=== PATIENT | male | born 1960 | race Caucasian/White ===

== ENCOUNTER 2016-12-28 08:27 | Emergency (ER) | payer OTHER ==
[~2016-12-28] VITALS: Ht 162.6 cm; Wt 109.0 kg
[~2016-12-28 08:27] MED LIST: AMOXACILLIN PO; ANR PR; CYCL-319 PO; HYDR-3498 PO; IBUP-727 PO; NAPR-260 PO; TRAM50TA2 PO
[2016-12-28 08:31] VITALS: Ht 162.6 cm; Wt 109.0 kg
[2016-12-28] MEDS ORDERED: KETOROLAC 30 MG INJ IM STA (09:14)
--- NOTE | 2016-12-28 10:03 | ERD ---
ER Documentation Chief Complaint Chief Complaint lower back pain & right forearm pain x1wk, denies injury HPI This is a 56-year-old male who presents the emergency department today complaining of back pain and right elbow pain for the past week. Denies any significant trauma. 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 States he is taking ibuprofen for pain. Denies any fevers or chills. Denies any dysuria, hematuria, loss of bowel or bladder control. ROS All systems reviewed and are negative except as per history of present illness. Medications Home Meds Active Scripts Tramadol HCl (Tramadol HCl) 50 Mg Tablet, 50 MG PO Q4 Y for PAIN, #20 TAB Prov:JESUS CANTU PA-C 12/28/16 Naproxen* (Naprosyn*) 500 Mg Tablet, 500 MG PO BID Y for PAIN AND/OR INFLAMMATION, #30 TAB Prov:JESUS CANTU PA-C 12/28/16 Naproxen* (Naprosyn*) 500 Mg Tablet, 500 MG PO BID Y for PAIN AND/OR INFLAMMATION, #30 TAB Prov:DIANA PAULSON PA-C 09/09/15 Cyclobenzaprine Hcl* (Cyclobenzaprine Hcl*) 10 Mg Tablet, 10 MG PO TID, #15 TAB Prov:DIANA PAULSON PA-C 09/09/15 Tramadol HCl (Tramadol HCl) 50 Mg Tablet, 50 MG PO Q4 Y for PAIN, #20 TAB Prov:DIANA PAULSON PA-C 09/09/15 Hard Fat/Phenylephrine* (Anusol*) 1 Supp Supp, 1 SUPP LA QHS for 7 Days, SUPP Prov:KIRA PALOMINO 12/29/14 Cyclobenzaprine Hcl* (Cyclobenzaprine Hcl*) 10 Mg Tablet, 10 MG PO TID, #15 TAB Prov:DIANA PAULSON PA-C 12/05/14 Naproxen* (Naprosyn*) 500 Mg Tablet, 500 MG PO BID Y for PAIN AND/OR INFLAMMATION, #30 TAB Prov:DIANA PAULSON PA-C 12/05/14 Hydrocodone Bit-Acetaminophen* (Descanso*) 5-325 Mg Tab, 1 TAB PO Q6 Y for PAIN, # 15 TAB Prov:DIANA PAULSON PA-C 12/05/14 Reported Medications Ibuprofen (Motrin) 600 Mg Tablet, 600 MG PO Q6HR 09/12/10 [Amoxacillin] 500 MG TAB No Conflict Check, 500 MG PO TID 09/12/10 Allergies Allergies: Coded Allergies: No Known Allergy (Verified , 09/09/15) PMhx/Soc History of Surgery: Yes (APPENDECTOMY) Anesthesia Reaction: No Hx Neurological Disorder: No Hx Respiratory Disorders: No Hx Cardiac Disorders: No Hx Psychiatric Problems: No Hx Miscellaneous Medical Probl: Yes (HTN) Hx Alcohol Use: No Hx Substance Use: No Hx Tobacco Use: No Physical Exam Vitals Vital Signs Date Time Temp Pulse Resp B/P Pulse Ox O2 Delivery O2 Flow Rate FiO2 12/28/16 08:31 98.0 95 151/72 98 Physical Exam Const: NAD Head: Atraumatic Eyes: Normal Conjunctiva ENT: Normal External Ears, Nose and Mouth. Neck: Full range of motion..~ No meningismus. Resp: Clear to auscultation bilaterally Cardio: Regular rate and rhythm, no murmurs Abd: Soft, non tender, non distended. Normal bowel sounds Skin: No petechiae or rashes Back: Lumbar spine midline tenderness no paraspinal tenderness. Negative straight leg raise. Pulses 2+. Distal neurovascularly intact MSK: Elbow with no obvious deformity. No effusion. No ecchymosis. Full active range of motion at elbow joint. Tenderness palpation lateral epicondyle and pain with wrist extension. Pulses 2+. Distal neurovascularly intact. Neur: Awake and alert Psych: Normal Mood and Affect Results 24 hrs Current Medications Medications (Trade) Dose Ordered Sig/Tanisha Route PRN Reason Start Time Stop Time Status Last Admin Dose Admin Ketorolac Tromethamine (Toradol) 30 mg ONCE STAT IM 12/28/16 09:14 12/28/16 09:16 DC 12/28/16 09:23 DIAGNOSTIC IMAGING REPORT Patient: CHADD OVALLE : 1960 Age: 56 Sex: M MR #: [id number] DOS: 12/28/16 0000 Ordering MD: JESUS CANTU PA-C Location: [facility] Room/Bed: PROCEDURE: XR Lumbar Spine. CLINICAL INDICATION: Low back pain. TECHNIQUE: AP, lateral and cone-down lateral view of the lumbar spine were obtained. COMPARISON: No prior studies are available for comparison. FINDINGS: There are 5 lumbar vertebra. S1 is partially lumbarized consistent with a transitional vertebra. The sacrum and SI joints are otherwise normal. There are degenerative osteophytes in the lower thoracic and lumbar spine. There is mild disc space narrowing at the lumbosacral junction. The neural canal and nerve root foramina are unremarkable. IMPRESSION: 1. 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 2. Transitional vertebra. S1 is partially lumbarized. RPTAT:AAJJ John Madrigal Physician Date Time Electronically viewed and signed by John Madrigal Physician on 12/28/2016 10:00 JM/ CC: JESUS CANTU PA-C Procedures/MDM Is a 56-year-old male who presents the emergency department today complaining of back pain and right elbow pain for the past week. On physical exam patient had midline tenderness in the lumbar spine and therefore did obtain images. His elbow exam is most consistent with extensor tendinitis. I have explained this to the patient. Per the radiology report images of the lumbar spine show there are degenerative osteophytes in the lower thoracic and lumbar spine. There is mild disc space narrowing at the lumbosacral junction. The neural canal and nerve root foramina are unremarkable. Symptoms at this time is consistent with degenerative disc disease and elbow tendinitis. Afebrile and otherwise well-appearing. He has no dysuria, hematuria or loss of bowel or bladder control. Low suspicion for urinary tract infection, pyelonephritis or nephrolithiasis, cauda equina or abscess Patient was given Toradol here in the emergency department. He will be given a prescription for short course of tramadol and Naprosyn for home. He was instructed to follow-up with his primary care doctor for referral to senior bioinformatics specialist. Patient understood. At this time the patient is stable for discharge and outpatient management. Patient should follow up with their PCP in the next 1-2 days. They may return to the emergency department sooner for any persistent or worsening of symptoms. Patient understood and agreed with the plan. Departure Diagnosis: Primary Impression: Back pain Back pain location: low back pain Chronicity: unspecified Back pain laterality: midline Sciatica presence: without sciatica Qualified Code: M54.5 - Midline low back pain without sciatica, unspecified chronicity Additional Impression: Elbow pain Laterality: right Qualified Code: M25.521 - Right elbow pain Condition: JESUS Ramirez PA-C Dec 28, 2016 10:03
[2016-12-28] MEDS ORDERED: NAPR-260 PO (10:14)
[2016-12-28] MEDS ORDERED: TRAM50TA2 PO (10:14)
[2016-12-28 10:31] VITALS: BP 134/75; PULSE 66; RESP 18; TEMP 98
== END 2016-12-28 10:32 | disposition home or self-care (01) ==
LOC: FTE 08:27
DX: M54.5 Low back pain (principal); M25.521 Pain in right elbow; I10 Essential (primary) hypertension
CPT/HCPCS: 72100; 96372; J1885; Z7502

== ENCOUNTER 2017-07-10 20:01 | Emergency (ER) | END 2017-07-10 23:00 | disposition home or self-care (01) ==

== ENCOUNTER 2018-06-03 17:56 | Emergency (ER) | payer OTHER ==
[~2018-06-03] VITALS: Ht 167.6 cm; Wt 109.0 kg
[~2018-06-03 17:56] MED LIST changes: -AMOXACILLIN PO; -ANR PR; +CEPH-443 PO; -CYCL-319 PO; -HYDR-3498 PO; +HYDR-4011 PO; +IBUP-1542 PO; -IBUP-727 PO; +LOSA25TA12 PO; -NAPR-260 PO; +NEO/5DRO22 LEFT EYE; +SULF1TAB31 PO; -TRAM50TA2 PO
[2018-06-03 18:12] VITALS: Ht 167.6 cm; Wt 109.0 kg
[2018-06-03] MEDS ORDERED: HYDR-4011 PO (23:40)
[2018-06-03] MEDS ORDERED: NAPR-985 PO (23:40)
[2018-06-03] MEDS ORDERED: ACYC800T5 PO (23:40)
[2018-06-04] MEDS ORDERED: HYDROCODONE/APAP (5/325) TAB PO ONE
--- NOTE | 2018-06-04 00:19 | ERD ---
ER Documentation Chief Complaint Chief Complaint Itchy rash on L torso and back X 2 days HPI This is a 57-year-old male with a history of hypertension presents ED with rash on left back that started 2 days ago. Patient states that he had a burning sensation prior to rash developing. Patient states the rash is only on his left low back and wraps around to torso. Admits to pain. Denies fever, chills, abdominal pain, chest pain, shortness breath, trouble breathing, and all other symptoms ROS All systems reviewed and are negative except as per history of present illness. Medications Home Meds Active Scripts Acyclovir* (Zovirax*) 800 Mg Tablet, 800 MG PO 5 TIMES DAILY for 7 Days, TAB Prov:MARGARETTE MOTLEY PA-C 06/03/18 Naproxen* (Naprosyn*) 500 Mg Tablet, 500 MG PO BID PRN for PAIN AND/OR INFLAMMATION, #30 TAB Prov:MARGARETTE MOTLEY PA-C 06/03/18 Hydrocodone/Acetaminophen (Solen 5-325 Tablet) 1 Each Tablet, 1 TAB PO Q6H PRN for PAIN, #7 TAB Prov:MARGARETTE MOTLEY PA-C 06/03/18 Hydrocodone/Acetaminophen ([place]olen 5-325 Tablet) 1 Each Tablet, 1 TAB PO Q6H PRN for PAIN, #12 TAB Prov:MARCELO WALKER MD 11/09/17 Neomycin/Polymyxin/Dexameth* (Maxitrol*) 5 Ml Drops, 1 DROP LEFT EYE QID for 5 Days, #1 EA Prov:MARCELO WALKER MD 11/09/17 Sulfamethoxazole/Trimethoprim* (Bactrim Ds* Tablet) 1 Each Tablet, 1 TAB PO BID, #14 TAB Prov:DON LUIS MD 07/10/17 Cephalexin* (Keflex*) 500 Mg Capsule, 500 MG PO QID for 7 Days, CAP Prov:DON LUIS MD 07/10/17 Ibuprofen* (Ibuprofen*) 600 Mg Tablet, 600 MG PO Q8 PRN for PAIN AND OR ELEVATED TEMP, #60 TAB Prov:DON LUIS MD 07/10/17 Reported Medications Losartan Potassium* (Losartan Potassium*) 25 Mg Tablet, 25 MG PO DAILY, TAB 07/10/17 Allergies Allergies: Coded Allergies: No Known Allergy (Verified , 09/09/15) PMhx/Soc History of Surgery: Yes (APPENDECTOMY) Anesthesia Reaction: No Hx Neurological Disorder: No Hx Respiratory Disorders: No Hx Cardiac Disorders: No Hx Psychiatric Problems: No Hx Miscellaneous Medical Probl: No (HTN) Hx Alcohol Use: No Hx Substance Use: No Hx Tobacco Use: No Smoking Status: Never smoker FmHx Family History: No diabetes Physical Exam Vitals Vital Signs Date Temp Pulse Resp B/P (MAP) Pulse Ox O2 O2 Flow FiO2 Time Delivery Rate 06/03/18 98.3 84 18 155/85 96 18:12 (108) Physical Exam Physical Exam Vitals signs: Reviewed by me. General: Well developed, well nourished, in no acute distress. Patient is awake and alert. Head: Normocephalic, atraumatic. Eyes: Normal conjunctiva, Pupils PERRLA, EOM intact grossly ENT: Pharynx is clear, Moist mucous membranes, external ears, nose and mouth normal Neck: Supple, no masses, lymphadenopathy or JVD Respiratory: Clear to auscultation bilaterally with no wheezing, rhonchi, rales, no distress Cardiovascular: RRR, no murmurs, rubs, or gallops Abdominal: Soft, non-tender, non-distended, no peritoneal signs : Deferred MSK: No edema, no unilateral swelling, 5/5 strength Back: No midline tenderness. No flank tenderness Neurologic: Alert and oriented, moving all extremities, normal speech, no focal weakness, no cerebellar signs. Normal mentation Skin: Papular vesicular rash along patient's left low back following dermatome and and wrapping around torso Psych: Normal mood Results 24 hrs Current Medications Medications Dose Sig/Tanisha Start Time Status Last (Trade) Ordered Route PRN Stop Time Admin Dose Reason Admin 1 tab ONCE ONCE 06/04/18 DC 06/03/18 Acetaminophen PO 00:00 06/04/18 23:51 / 00:01 Hydrocodone Bitart (Solen (5/325)) Procedures/MDM ER COURSE: The patient was stable throughout ED course. I kept the patient and/or family informed of laboratory and diagnostic imaging results throughout the emergency room course. The patient was promptly evaluated and a treatment plan was devised based on H&P and other data. This plan was discussed with the patient who agreed and had no further questions or concerns prior to discharge. MEDICAL DECISION MAKIN-year-old male presents ED with shingles rash times 2 days. Low suspicion for anaphylaxis, scabies, STS, TEN, Lyme's disease, syphilis, [place] spotted fever, shingles, disseminated gonorrhea chlamydia, DIC, TTP, ITP, sepsis, necrotizing fasciitis, gangrene, or other emergent condition. Patient's vitals are stable and can be managed with outpatient close follow-up. Advised patient to follow-up with her primary care in the next 48 hours. Advised patient return to ED with any worsening symptoms. Advised patient to go get shingles vaccine from primary care physician DISPOSITION PLAN: We discussed follow up with the patient's primary care doctor within 24 to 48 hours. Patient counseled regarding my diagnostic impression and care plan. Prior to discharge all questions answered. Pt agrees with treatment plan and understands strict return precautions. Precautionary instructions provided including instructions to return to the ER if not improving or for any worsening or changing symptoms or concerns. ExitCare instructions provided. Prior to discharge, patients vital signs have been reviewed SPECIALIST FOLLOW UP RECOMMENDED: None Patient has been advised to follow up with primary care in 1-2 days. Disclaimer: Inadvertent spelling and grammatical errors are likely due to EHR/dictation software use and do not reflect on the overall quality of patient care. Also, please note that the electronic time recorded on this note does not necessarily reflect the actual time of the patient encounter. Departure Diagnosis: Primary Impression: Shingles Herpes zoster complications: without complications Qualified Codes: B02.9 - Zoster without complications Condition: Stable Patient Instructions: Shingles (Herpes Zoster) Referrals: [facility] () Usted se nagel hecho un examen mdico de control que le indica que no est en mariaelena condicin que requiera tratamiento urgente en el Departamento de Emergencia. Un estudio ms profundo y el tratamiento de lacy condicin pueden esperar sin ningn riesgo hasta que usted sea atendida/o en el consultorio de lacy mdico o mariaelena clnica. Es responsabilidad suya arreglar mariaelena sindy para el seguimiento del iam. MANEJO DE CONDICIONES NO URGENTES EN EL FUTURO 1) Si usted tiene un mdico de atencin primaria: Usted debera llamar a lacy mdico de atencin primaria antes de venir al departamento de emergencia. Despus de las horas de consultorio, lacy doctor o lacy asociado/a est disponible por telfono. El mdico o enfermero de [place] en el servicio telefnico puede asesorarle por helen medio para atender el problema, o iam contrario se puede programar mariaelena sindy. 2) Si usted no tiene un mdico de atencin primaria: Llame al mdico o clnica de referencia que aparece abajo bernadette las horas de consultorio para hacer mariaelena sindy para que le vean. CLINICAS: [facility] [phone] [facility] [phone] [facility] [phone] [facility] [phone] [facility] [phone] [address] [facility] [phone] [address] Additional Instructions: Paciente aconseja volver a Departamento de urgencias inmediatamente para sntomas nuevos o que empeoran . Paciente aconseja posteriores con el PCP en 1-2 kwon . Paciente verbaliza la comprehensin y est de acuerdo con el tratamiento y el curso de accin. Si el paciente no tiene ninguna de atencin primaria pueden seguir con [facility] [address] [place] [address] o [facility] [address] [place] [id number] MARGARETTE MOTLEY PA-C Jun 04, 2018 00:19
[2018-06-04 00:26] VITALS: BP 149/87; PULSE 66; RESP 18
== END 2018-06-04 00:26 | disposition home or self-care (01) ==
LOC: FTE 17:56
DX: B02.9 Zoster without complications (principal); I10 Essential (primary) hypertension
CPT/HCPCS: Z7502; Z7610; 99283

== ENCOUNTER 2018-07-13 17:26 | Emergency (ER) | payer OTHER ==
[~2018-07-13] VITALS: Wt 80.0 kg
[~2018-07-13 17:26] MED LIST changes: +ACYC800T5 PO; +NAPR-985 PO
[2018-07-13] MEDS ORDERED: SOD CHLORIDE 0.9% 1,000 ML IV STA (20:26)
[2018-07-13] MEDS ORDERED: KETOROLAC 15 MG INJ IV STA (20:26)
[2018-07-13] MEDS ORDERED: DICYCLOMINE 20 MG INJ IM ONE (20:30)
[2018-07-13] MEDS ORDERED: DICY10CA40 PO (21:49)
--- NOTE | 2018-07-13 21:54 | ERD ---
ER Documentation Chief Complaint Chief Complaint AP WITH DIARRHEA TODAY HPI Pleasant 57-year-old gentleman who presents to the emergency room complaining of abdominal pain. The patient describes approximately 24 hours of generalized abdominal cramping with several episodes of looser stools. No recent travel sick contacts or antibiotics. The pain is 6 out of 10. No chest pain or exertional symptoms, no hematemesis. ROS All systems reviewed and are negative except as per history of present illness. Medications Home Meds Active Scripts Dicyclomine HCl (Dicyclomine HCl) 10 Mg Capsule, 10 MG PO TID PRN for ABDOMINAL CRAMPING, #20 CAP Prov:ANTHONY WOLF MD 07/13/18 Acyclovir* (Zovirax*) 800 Mg Tablet, 800 MG PO 5 TIMES DAILY for 7 Days, TAB Prov:MARGARETTE MOTLEY PA-C 06/03/18 Naproxen* (Naprosyn*) 500 Mg Tablet, 500 MG PO BID PRN for PAIN AND/OR INFLAMMATION, #30 TAB Prov:MARGARETTE MOTLEY PA-C 06/03/18 Hydrocodone/Acetaminophen ([place] 5-325 Tablet) 1 Each Tablet, 1 TAB PO Q6H PRN for PAIN, #7 TAB Prov:MARGARETTE MOTLEY PA-C 06/03/18 Hydrocodone/Acetaminophen ([place] 5-325 Tablet) 1 Each Tablet, 1 TAB PO Q6H PRN for PAIN, #12 TAB Prov:MARCELO WALKER MD 11/09/17 Neomycin/Polymyxin/Dexameth* (Maxitrol*) 5 Ml Drops, 1 DROP LEFT EYE QID for 5 Days, #1 EA Prov:MARCELO WALKER MD 11/09/17 Sulfamethoxazole/Trimethoprim* (Bactrim Ds* Tablet) 1 Each Tablet, 1 TAB PO BID, #14 TAB Prov:DON LUIS MD 07/10/17 Cephalexin* (Keflex*) 500 Mg Capsule, 500 MG PO QID for 7 Days, CAP Prov:DON LUIS MD 07/10/17 Ibuprofen* (Ibuprofen*) 600 Mg Tablet, 600 MG PO Q8 PRN for PAIN AND OR ELEVATED TEMP, #60 TAB Prov:DON LUIS MD 07/10/17 Reported Medications Losartan Potassium* (Losartan Potassium*) 25 Mg Tablet, 25 MG PO DAILY, TAB 07/10/17 Allergies Allergies: Coded Allergies: No Known Allergy (Verified , 09/09/15) PMhx/Soc History of Surgery: Yes (APPENDECTOMY) Anesthesia Reaction: No Hx Neurological Disorder: No Hx Respiratory Disorders: No Hx Cardiac Disorders: No Hx Psychiatric Problems: No Hx Miscellaneous Medical Probl: No (HTN) Hx Alcohol Use: No Hx Substance Use: No Hx Tobacco Use: No Smoking Status: Never smoker FmHx Family History: No diabetes Physical Exam Vitals Vital Signs Date Temp Pulse Resp B/P (MAP) Pulse Ox O2 O2 Flow FiO2 Time Delivery Rate 07/13/18 98.1 87 18 140/93 99 Room Air 20:55 (109) 07/13/18 98.1 86 18 144/94 99 Room Air 20:12 (111) 07/13/18 98.1 90 18 154/86 99 17:34 (108) Physical Exam General: Well developed, well nourished, no acute distress Head: Normocephalic, atraumatic. Eyes: Pupils equally reactive, EOM intact ENT: Moist mucous membranes Neck: Supple, no lymphadenopathy Respiratory: Lungs clear bilaterally, no distress Cardiovascular: RRR, no murmurs, rubs, or gallops Abdominal: Soft, non-tender, non-distended, no peritoneal signs, negative Anaya sign, no tenderness to McBurney's point : Deferred MSK: No edema, no unilateral swelling, 5/5 strength Neurologic: Alert and oriented, moving all extremities, normal speech, no focal weakness, no cerebellar signs Skin: No rash Psych: Normal mood Result Diagram: 07/13/18203607/13/182036 Results 24 hrs Laboratory Tests Test 07/13/18 20:37 White Blood Count 10.5 10^3/ul Red Blood Count 5.01 10^6/ul Hemoglobin 15.3 g/dl Hematocrit 46.2 % Mean Corpuscular Volume 92.2 fl Mean Corpuscular Hemoglobin 30.5 pg Mean Corpuscular Hemoglobin Concent 33.1 g/dl Red Cell Distribution Width 13.4 % Platelet Count 233 10^3/UL Mean Platelet Volume 10.3 fl Immature Granulocytes % 0.400 % Neutrophils % 73.5 % Lymphocytes % 16.5 % Monocytes % 7.2 % Eosinophils % 2.2 % Basophils % 0.2 % Nucleated Red Blood Cells % 0.0 /100WBC Immature Granulocytes # 0.040 10^3/ul Neutrophils # 7.7 10^3/ul Lymphocytes # 1.7 10^3/ul Monocytes # 0.8 10^3/ul Eosinophils # 0.2 10^3/ul Basophils # 0.0 10^3/ul Nucleated Red Blood Cells # 0.0 10^3/ul Sodium Level 142 mmol/L Potassium Level 3.6 mmol/L Chloride Level 104 mmol/L Carbon Dioxide Level 29 mmol/L Anion Gap 9 Blood Urea Nitrogen 24 mg/dl Creatinine 0.89 mg/dl Est Glomerular Filtrat Rate mL/min > 60 mL/min Glucose Level 113 mg/dl Calcium Level 9.1 mg/dl Total Bilirubin 0.8 mg/dl Direct Bilirubin 0.00 mg/dl Indirect Bilirubin 0.8 mg/dl Aspartate Amino Transf (AST/SGOT) 29 IU/L Alanine Aminotransferase (ALT/SGPT) 37 IU/L Alkaline Phosphatase 93 IU/L Total Protein 7.7 g/dl Albumin 4.3 g/dl Globulin 3.40 g/dl Albumin/Globulin Ratio 1.26 Lipase 74 U/L Current Medications Medications Dose Sig/Tanisha Start Time Status Last (Trade) Ordered Route PRN Stop Time Admin Dose Reason Admin Sodium 1,000 ml @ Q1H STAT 07/13/18 DC 07/13/18 Chloride 1,000 mls/hr IV 20:26 20:35 07/13/18 21:25 Ketorolac 15 mg ONCE STAT 07/13/18 DC 07/13/18 Tromethamine IV 20:26 20:36 (Toradol) 07/13/18 20:28 Dicyclomine 10 mg ONCE ONCE 07/13/18 DC 07/13/18 HCl IM 20:30 21:09 (Bentyl) 07/13/18 20:31 Procedures/MDM LAB INTERPRETATION: I reviewed the laboratory testing and it shows no evidence of acute process MEDICAL DECISION MAKING: Patient's presentation is likely consistent with viral diarrheal illness. He has a benign abdominal exam without signs of acute intra-abdominal process. No evidence of acute appendicitis. No evidence of diverticulitis. No high risk factors concerning for bacterial diarrhea. Patient will benefit from reas surance, fluids and symptom control. ER COURSE: * Laboratory testing is reassuring. Symptoms improved with IV fluids and nonnarcotic pain medication. The patient can be safely discharged home. No i ndication for antibiotics. CONSULTATION: None DISPOSITION PLAN: The patient does not have an identifiable emergent medical condition that warrants inpatient hospitalization at this time. The patient is deemed safe for discharge with outpatient follow-up. We discussed follow up with the patient's primary care doctor within 24 to 48 hours as needed. We also discussed return to the emergency room for worsening symptoms or worsening condition. Outpatient referral: None required Discharge Medications: Bentyl Departure Diagnosis: Primary Impression: Diarrhea Diarrhea type: unspecified type Qualified Codes: R19.7 - Diarrhea, unspecified Additional Impression: Generalized abdominal pain Condition: Stable Patient Instructions: Abdominal Pain, Diarrhea, Viral (Child) (Adult) Referrals: [facility] Juliocesar se nagel hecho un examen mdico de control que le indica que no est en mariaelena condicin que requiera tratamiento urgente en el Departamento de Emergencia. Un estudio ms profundo y el tratamiento de lacy condicin pueden esperar sin ningn riesgo hasta que ted sea atendida/o en el consultorio de lacy mdico o mariaelena clnica. Es responsabilidad suya arreglar mariaelena peter para el seguimiento del iam. MANEJO DE CONDICIONES NO URGENTES EN EL FUTURO 1) Si usted tiene un mdico de atencin primaria: ted debera llamar a lacy mdico de atencin primaria antes de venir al departamento de emergencia. Despus de las horas de consultorio, lacy doctor o lacy asociado/a est disponible por telfono. El mdico o enfermero de [place] en el servicio telefnico puede asesorarle por helen medio para atender el problema, o iam contrario se puede programar mariaelena peter. 2) Si usted no tiene un mdico de atencin primaria: Llame al mdico o clnica de referencia que aparece abajo bernadette las horas de consultorio para hacer mariaelena peter para que le vean. CLINICAS: [facility] [phone] [facility] [phone] [facility] [phone] [place] [phone] [place] [phone] [place] [phone] [address] . [facility] () Usted se nagel hecho un examen mdico de control que le indica que no est en mariaelena condicin que requiera tratamiento urgente en el Departamento de Emergencia. Un estudio ms profundo y el tratamiento de lacy condicin pueden esperar sin ningn riesgo hasta que usted sea atendida/o en el consultorio de lacy mdico o mariaelena clnica. Es responsabilidad suya arreglar mariaelena peter para el seguimiento del iam. MANEJO DE CONDICIONES NO URGENTES EN EL FUTURO 1) Si usted tiene un mdico de atencin primaria: Usted debera llamar a lacy mdico de atencin primaria antes de venir al departamento de emergencia. Despus de las horas de consultorio, lacy doctor o lacy asociado/a est disponible por telfono. El mdico o enfermero de [place] en el servicio telefnico puede asesorarle por helen medio para atender el problema, o iam contrario se puede programar mariaelena peter. 2) Si usted no tiene un mdico de atencin primaria: Llame al mdico o condado institucions de referencia que aparece abajo bernadette las horas de consultorio para hacer mariaelena peter para que le vean. SI USTED NO PUEDE PAGAR PARA [place] UN MEDICO puede ir a: [facility] [phone] [place] [address] [facility] [address] [place] [address] [facility] [address] [place] [address] [facility] [address] [place], [place] [phone] Additional Instructions: Llame al doctor nombrado abajo (Referral Sources) MAANA y allie mariaelena PETER PARA DE NTRO DE MARIAELENA SEMANA. Dgale a la secretaria que nosotros le instruimos hacer esta peter.Avise o llame si lacy condicin se empeora antes de la peter. ANTHONY WOLF MD July 13, 2018 21:53
[2018-07-13 22:21] VITALS: BP 137/85; PULSE 73; RESP 18
== END 2018-07-13 22:29 | disposition home or self-care (01) ==
LOC: E/R 17:26
DX: R19.7 Diarrhea, unspecified (principal)
CPT/HCPCS: 36415; 80053; 83690; 85025; 96372; 96374; J0500; J1885; J7030; Z7502; Z7610

== ENCOUNTER 2018-10-21 17:48 | Emergency (ER) | payer OTHER ==
[~2018-10-21] VITALS: Ht 165.1 cm; Wt 104.6 kg
[~2018-10-21 17:48] MED LIST changes: +AMLO5TAB4 PO; +CIPR500T4 PO; +DICY10CA40 PO; +HYDR-3980 PO; +TAMS-14 PO
[2018-10-21 17:53] VITALS: Ht 165.1 cm; Wt 104.6 kg
[2018-10-21] MEDS ORDERED: HYDROmorphONE 1 MG/ML SYG IV STA (18:21)
[2018-10-21] MEDS ORDERED: SOD CHLORIDE 0.9% 1,000 ML IV STA (18:21)
[2018-10-21] MEDS ORDERED: ONDANSETRON 4 MG INJ IV STA (18:21)
[2018-10-21 20:07] VITALS: BP 135/82; PULSE 79; RESP 18
== END 2018-10-21 20:08 | disposition home or self-care (01) ==
LOC: E/R 17:48
DX: N20.1 Calculus of ureter (principal); I10 Essential (primary) hypertension
CPT/HCPCS: 36415; 74176; 80053; 81001; 83690; 85025; 96374; 96375; J1170; J2405; J7030; Z7502

== ENCOUNTER 2018-10-25 16:57 | Inpatient (IN) | payer OTHER ==
[~2018-10-25] VITALS: Ht 154.9 cm; Wt 104.5 kg
[2018-10-25] MEDS ORDERED: SOD CHLORIDE 0.9% 1,000 ML IV STA (20:48)
[2018-10-25] MEDS ORDERED: ONDANSETRON 4 MG INJ IV STA ×2 (20:48→22:13)
[2018-10-25] MEDS ORDERED: morphine 4 MG/ML VIAL IV STA ×2 (20:48→22:13)
[2018-10-25] MEDS ORDERED: ACETAMINOPHEN 325 MG TAB PO PRN (23:30)
[2018-10-25] MEDS ORDERED: ONDANSETRON 4 MG INJ IV PRN (23:30)
[2018-10-26] MEDS ORDERED: ALBUTEROL/IPRATROPIUM (NEB) 3 ML AMP HHN PRN (01:30)
[2018-10-26] MEDS ORDERED: TAMSULOSIN (SR) 0.4 MG CAP PO ONE (01:30)
[2018-10-26] MEDS ORDERED: ONDANSETRON 4 MG INJ IV PRN (01:30)
[2018-10-26] MEDS ORDERED: NACL 0.9% 3 ML SYG IV SCH (01:30)
[2018-10-26] MEDS ORDERED: HYDROCODONE/APAP (5/325) TAB PO PRN ×2 (01:30)
[2018-10-26] MEDS ORDERED: ACETAMINOPHEN 325 MG TAB PO PRN (01:30)
[2018-10-26] MEDS ORDERED: morphine 4 MG/ML VIAL IV PRN (01:30)
[2018-10-26] MEDS: CEFTRIAXONE 1 GM/50 ML (PMX) 50 ML IVPB SCH (02:34)
[2018-10-26] MEDS: SOD CHLORIDE 0.9% 1,000 ML IV SCH ×3 (02:35→16:11)
[2018-10-26 03:42] VITALS: Ht 154.9 cm; Wt 104.5 kg
[2018-10-26 08:00] VITALS: BP 152/91; PULSE 75; RESP 18
[2018-10-26 12:43] VITALS: BP 135/79; PULSE 69
[2018-10-26] MEDS: LOSARTAN 25 MG TAB PO SCH (12:43)
[2018-10-26 14:30] VITALS: BP 139/85; PULSE 73; RESP 18
[2018-10-26] MEDS: POTASSIUM CHLORIDE 10 MEQ in SOD CHLORIDE 0.45% 1,000 ML IV SCH ×2 (14:39→23:30)
[2018-10-26 19:52] VITALS: BP 142/88; PULSE 72; RESP 20
[2018-10-27 01:24] VITALS: BP 146/87; PULSE 69; RESP 18
[2018-10-27] MEDS: CEFTRIAXONE 1 GM/50 ML (PMX) 50 ML IVPB SCH (01:27)
[2018-10-27] MEDS: POTASSIUM CHLORIDE 10 MEQ in SOD CHLORIDE 0.45% 1,000 ML IV SCH ×2 (06:06→09:13)
[2018-10-27 08:48] VITALS: BP 147/97; PULSE 74; RESP 17
[2018-10-27] MEDS: LOSARTAN 25 MG TAB PO SCH (09:13)
[2018-10-27 14:20] VITALS: BP 126/78; PULSE 72; RESP 16
== END 2018-10-27 16:50 | disposition home or self-care (01) | DRG 694 ==
LOC: E/R 16:57 → 2NE 23:22 → CANRESERV 10-26 02:07
PROVIDERS: ADMIT Internal Medicine; ATTEND Internal Medicine
DX: N13.2 Hydronephrosis with renal and ureteral calculous obstruction (principal); I10 Essential (primary) hypertension; N28.9 Disorder of kidney and ureter, unspecified; N40.0 Benign prostatic hyperplasia without lower urinary tract symptoms
CPT/HCPCS: 74018; 74176; 80048; 80053; 81001; 82355; 83690; 83735; 84100; 85025; 87086; 96374; 96375; 96376; J0696; J2270; J2405; J3480; J7030